=== PATIENT | male | born 1985 | race Caucasian/White ===

== ENCOUNTER 2018-01-03 23:06 | Emergency (ER) | payer BC ==
[2018-01-03 23:12] VITALS: RESP 18
--- NOTE | 2018-01-03 23:13 | ED ---
Psych HPI - General Stated Complaint: Mental Health Time Seen by Provider: 01/03/18 23:11 Source: patient Mode of arrival: ambulatory - History of Present Illness Initial Comments: Irwin is a 32-year-old male with a history of depression as well as a suicide attempt in the distant past who presents to the emergency department today in police custody for evaluation of suicidal threat. Patient reports that approximately 2 weeks ago he ran out of his trazodone and he felt like he had not been depressed recently and did not need a refill so he did not refill that prescription or continue taking it. Its been approximately 2-2-1/2 weeks without trazodone. Patient reports that this evening he got in an argument with his and told her that he was in a shoot himself with her gone. Patient does admit to making a statement. He does admit to feeling depressed for the past week or 2 and states he doesn't know why that there is nothing going on that would make him depressed. He denies any suicidal thoughts prior to making a statement. He denies any specific suicidal plan that we does have guns in the home. Patient has a history of alcohol abuse but has been sober for over 4 years. Patient is apologetic and cooperative upon initial evaluation. - Related Data Allergies Allergy/AdvReac Type Severity Reaction Status Date / Time No Known Allergies Allergy Verified 01/03/18 23:10 Review of Systems ROS Statement: Those systems with pertinent positive or pertinent negative responses have been documented in the HPI. ROS Other: All systems not noted in ROS Statement are negative. Past Medical History Past Medical History: No Reported History History of Any Multi-Drug Resistant Organisms: None Reported Past Surgical History: Hernia Repair, Tonsillectomy Past Psychological History: No Psychological Hx Reported Smoking Status: Never smoker Past Alcohol Use History: None Reported Past Drug Use History: None Reported General Exam - General Exam Comments Initial Comments: Physical Exam GENERAL: Patient is well-developed and well-nourished. Patient is nontoxic and well- hydrated and is in no distress. HENT: Normocephalic, Atraumatic. EYES: PERRL, EOMI PULMONARY: Unlabored respirations. No audible rales rhonchi or wheezing was noted. CARDIOVASCULAR: There is a regular rate and rhythm without any murmurs gallops or rubs. ABDOMEN: Soft and nontender with normal bowel sounds. SKIN: Skin is clear with no lesions or rashes and otherwise unremarkable. : Deferred NEUROLOGIC: Patient is alert and oriented x3. Moving all extremities spontaneously MUSCULOSKELETAL: Normal extremities with adequate strength and full range of motion. No lower extremity swelling or edema. No calf tenderness. PSYCHIATRIC: Normal psychiatric evaluation. Limitations: no limitations Limitations: no limitations Course Vital Signs 01/03/18 01/04/18 23:07 01:33 Temperature 98.0 F 97.8 F Pulse Rate 72 61 Respiratory 18 18 Rate Blood Pressure 134/83 105/78 O2 Sat by Pulse 99 99 Oximetry Medical Decision Making - Medical Decision Making The patient was seen and evaluated immediately upon arrival emergency department. Patient was brought in by PD after making a suicidal statement to his . Patient does have a history of depression and is currently off his medications. He does have outpatient follow-up. He denies any specific suicidal plan. Patient was medically cleared for evaluation by psych Psychiatric nurse spoke with the patient for a prolonged period of time. Patient did contract to safety. Patient was provided with outpatient resources. Patient and his are comfortable with the plan for discharge home and outpatient follow-up. Return parameters were discussed patient was discharged home in stable condition. - Lab Data Lab Results 01/03/18 Range/Units 23:10 Urine Opiates Screen Not Detected (NotDetected) Ur Oxycodone Screen Not Detected (NotDetected) Urine Methadone Screen Not Detected (NotDetected) Ur Propoxyphene Screen Not Detected (NotDetected) Ur Barbiturates Screen Not Detected (NotDetected) U Tricyclic Antidepress Not Detected (NotDetected) Ur Phencyclidine Scrn Not Detected (NotDetected) Ur Amphetamines Screen Not Detected (NotDetected) U Methamphetamines Scrn Not Detected (NotDetected) U Benzodiazepines Scrn Not Detected (NotDetected) Urine Cocaine Screen Not Detected (NotDetected) U Marijuana (THC) Screen Not Detected (NotDetected) Disposition Clinical Impression: Acute anxiety Disposition: HOME SELF-CARE Condition: Stable Instructions: Depression (ED), Anxiety (ED) Is patient prescribed a controlled substance at d/c from ED?: No Referrals: Nonstaff,Physician [REFERRING] - 1-2 days
[2018-01-03 23:40] LABS: Amphetamine Screen,Urine Not Detected (NotDetected); Barbiturate Screen,Urine Not Detected (NotDetected); Benzodiazepines Screen,Urine Not Detected (NotDetected); Cocaine Screen,Urine Not Detected (NotDetected); Methadone Screen, Urine Not Detected (NotDetected); Opiate Screen,Urine Not Detected (NotDetected); Oxycodone Screen, Urine Not Detected (NotDetected); Phencyclidine Screen,Urine Not Detected (NotDetected); Tricyclic Antidepressant,Urine Not Detected (NotDetected); Urn Cannabinoid Scrn Not Detected (NotDetected)
[2018-01-04 01:34] VITALS: BP 105/78; PULSE 61; TEMP 97.8
== END 2018-01-04 01:36 | disposition home or self-care (01) ==
LOC: EC 23:06
DX: F41.9 Anxiety disorder, unspecified (principal); F32.9 Major depressive disorder, single episode, unspecified
CPT/HCPCS: 80306; 82075; 99284

== ENCOUNTER → 2020-11-28 | Outpatient (CLI) | payer BC ==
[2020-11-29 09:01] LABS: HIV 2 AB Non-Reactive (Non-Reactive); HIV AB P24 Non-Reactive (Non-Reactive); HIV P24 AG Non-Reactive (Non-Reactive)
[2020-11-29 09:02] LABS: Hepatitis A Antibody IgM Nonreactive (Nonreactive); Hepatitis B Core IgM Nonreactive (Nonreactive); Hepatitis B Surface Antigen Nonreactive (Nonreactive); Hepatitis C IgG Antibody Nonreactive (Nonreactive)
== END | disposition home or self-care (01) ==
LOC: LABWHC1 09:31
PROVIDERS: ATTEND Obstetrics & Gynecology Reproductive Endocrinology
DX: A64 Unspecified sexually transmitted disease (principal); K75.9 Inflammatory liver disease, unspecified
CPT/HCPCS: 36415; 80074; 86644; 86645; 86780; 87390